=== PATIENT | female | born 1980 | race Two or more races ===

== ENCOUNTER 2018-04-26 10:03 | Outpatient (CLI) | payer OTHER | END 2018-04-26 10:06 | disposition home or self-care (01) | LOC: SONOGRAMA 10:03 | DX: N63.11 Unspecified lump in the right breast, upper outer quadrant (principal); N60.11 Diffuse cystic mastopathy of right breast; N60.12 Diffuse cystic mastopathy of left breast ==

== ENCOUNTER 2019-01-16 06:00 | Day surgery (SDC) | payer OTHER ==
[2019-01-16] MEDS ORDERED: ULTRACET PO (11:05)
[2019-01-16] MEDS ORDERED: ZITHROMAX500 MG PO (11:06)
== END 2019-01-16 13:45 | disposition home or self-care (01) ==
LOC: CIR.AMB 06:00
DX: D25.0 Submucous leiomyoma of uterus (principal)

== ENCOUNTER 2019-03-11 11:39 | Emergency (ER) | payer OTHER ==
[~2019-03-11] VITALS: Ht 157.5 cm; Wt 68.0 kg
[~2019-03-11 11:39] MED LIST: ULTRACET PO; ZITHROMAX500 MG PO
[2019-03-11] MEDS ORDERED: ZITHROMAX500 MG PO (15:31)
== END 2019-03-11 15:57 | disposition home or self-care (01) ==
LOC: ER 11:39
DX: R53.1 Weakness (principal); I10 Essential (primary) hypertension

== ENCOUNTER 2021-05-03 17:52 | Inpatient (IN) | payer OTHER ==
[~2021-05-03] VITALS: Ht 157.5 cm; Wt 78.0 kg
== END 2021-05-07 13:55 | disposition home or self-care (01) | DRG 743 ==
LOC: OB/GYN 17:52
PROVIDERS: ADMIT Specialist; ATTEND Specialist
PROC: 0UT90ZZ Resection of Uterus, Open Approach (ICD-10-PCS; principal; 2021-05-04)
PROC: 0UT70ZZ Resection of Bilateral Fallopian Tubes, Open Approach (ICD-10-PCS; 2021-05-04)
PROC: 30233N1 Transfusion of Nonautologous Red Blood Cells into Peripheral Vein, Percutaneous Approach (ICD-10-PCS; 2021-05-04)
DX: D25.0 Submucous leiomyoma of uterus (principal); D25.2 Subserosal leiomyoma of uterus; D50.0 Iron deficiency anemia secondary to blood loss (chronic); N94.5 Secondary dysmenorrhea; N72 Inflammatory disease of cervix uteri; N83.8 Other noninflammatory disorders of ovary, fallopian tube and broad ligament; N92.0 Excessive and frequent menstruation with regular cycle; D25.9 Leiomyoma of uterus, unspecified; N80.0 Endometriosis of uterus; N99.4 Postprocedural pelvic peritoneal adhesions; N73.6 Female pelvic peritoneal adhesions (postinfective)